=== PATIENT | female | born 1980 | race Caucasian/White ===

== ENCOUNTER 2018-07-09 09:05 | Emergency (ER) | payer OTHER ==
[2018-07-09 09:10] VITALS: TEMP 98.1
[2018-07-09] MEDS ORDERED: KETOROLAC 30 MG/ML 1 ML VIAL IVP STA (09:46)
--- NOTE | 2018-07-09 10:01 | XR ---
EXAMINATION TYPE: XR chest 2V DATE OF EXAM: 07/09/2018 COMPARISON: NONE HISTORY: Chest pain TECHNIQUE: Frontal and lateral views of the chest are obtained. FINDINGS: There is no focal air space opacity, pleural effusion, or pneumothorax seen. The cardiac silhouette size is within normal limits. The osseous structures are intact. There are cardiac leads present. IMPRESSION: No acute cardiopulmonary process.
[2018-07-09 10:22] LABS: Basophils # (A) 0.1 k/uL (0-0.2); Basophils % (A) 1 %; Eosinophils # (A) 1.5 k/uL (0-0.7); Eosinophils % (A) 26 %; HCT 40.5 % (34.0-46.0); HGB 13.7 gm/dL (11.4-16.0); Lymphocytes # (A) 1.5 k/uL (1.0-4.8); Lymphocytes % (A) 25 %; MCH 30.7 pg (25.0-35.0); MCHC 33.8 g/dL (31.0-37.0); MCV 90.9 fL (80.0-100.0); Mean Platelet Volume 6.4; Monocytes # (A) 0.3 k/uL (0-1.0); Monocytes % (A) 4 %; Neutrophils # (A) 2.5 k/uL (1.3-7.7); Neutrophils % (A) 43 %; Platelet Count 311 k/uL (150-450); RBC 4.46 m/uL (3.80-5.40); RDW 12.4 % (11.5-15.5); WBC 5.9 k/uL (3.8-10.6)
[2018-07-09 10:35] LABS: ALT 33 U/L (9-52); AST 21 U/L (14-36); Albumin 4.5 g/dL (3.5-5.0); Alkaline Phosphatase 37 U/L (38-126); Amylase 58 U/L (30-110); Anion Gap 9 mmol/L; Blood Urea Nitrogen 8 mg/dL (7-17); Calcium 9.6 mg/dL (8.4-10.2); Carbon Dioxide 29 mmol/L (22-30); Chloride 104 mmol/L (98-107); Glucose 105 mg/dL (74-99); Lipase 114 U/L (23-300); Magnesium 1.8 mg/dL (1.6-2.3); Potassium 3.5 mmol/L (3.5-5.1); Sodium 142 mmol/L (137-145); Total Bilirubin 0.5 mg/dL (0.2-1.3); Total Protein 7.5 g/dL (6.3-8.2)
--- NOTE | 2018-07-09 10:40 | ED ---
Chest Pain HPI - General Chief Complaint: Chest Pain Stated Complaint: chest & abdominal pain Time Seen by Provider: 07/09/18 09:14 Source: patient, RN notes reviewed Mode of arrival: ambulatory Limitations: no limitations - History of Present Illness Initial Comments: This is a 37-year-old female with a benign past medical history presents with complaints of sharp and burning left-sided chest pain is been intermittent since last night. She states for 2 and half weeks she's had midepigastric pain it was burning like a brick-like. It now radiates up the left upper chest.. She denies any fevers chills nausea vomiting sweats she states pain is 4/10 severity with does come on. It can last anywhere from 5 minutes to 60 minutes. She is not recall any heavy lifting she does have a history of left shoulder problems she relates the pain to that. Patient is a nonsmoker she has no prior history of heart or lung disease no family history of heart or lung disease at early age. Last missed her period was about a week ago she denies any risk of being MD Complaint: chest pain - Related Data Home Medications Medication Instructions Recorded Confirmed ALPRAZolam [Xanax] 0.25 mg PO HS 07/09/18 07/09/18 Multivitamins, Thera [Multivitamin 1 tab PO DAILY 07/09/18 07/09/18 (formulary)] Douglas-3 Fatty Acids/Fish Oil [Fish 1 cap PO DAILY 07/09/18 07/09/18 Oil 1,000 mg Softgel] traMADol HCL [Ultram] 25 mg PO DAILY 07/09/18 07/09/18 Previous Rx's Medication Instructions Recorded Ibuprofen 800 mg PO Q6HR PRN #20 tablet 07/09/18 Allergies Allergy/AdvReac Type Severity Reaction Status Date / Time Penicillins Allergy Unknown Verified 07/09/18 10:03 Review of Systems ROS Statement: Those systems with pertinent positive or pertinent negative responses have been documented in the HPI. ROS Other: All systems not noted in ROS Statement are negative. EKG Findings - EKG Results: EKG: interpreted by GENA, sinus rhythm (Normal sinus rhythm of 85. Interval 124 QRS duration 86 QT/QTC 382/[address]-T wave configuration.) Past Medical History Past Medical History: No Reported History History of Any Multi-Drug Resistant Organisms: None Reported Additional Past Surgical History / Comment(s): JAW SURGERY Past Psychological History: Anxiety Smoking Status: Never smoker Past Alcohol Use History: None Reported Past Drug Use History: None Reported General Exam - General Exam Comments Initial Comments: This a well-developed well-nourished awake alert oriented 3 female Limitations: no limitations General appearance: alert, in no apparent distress Head exam: Present: atraumatic, normocephalic, normal inspection Eye exam: Present: normal appearance, PERRL, EOMI. Absent: scleral icterus, conjunctival injection, periorbital swelling ENT exam: Present: normal exam, mucous membranes moist Neck exam: Present: normal inspection, full ROM, other (No stridor JVD or bruits). Absent: tenderness, meningismus, lymphadenopathy Respiratory exam: Present: normal lung sounds bilaterally, chest wall tenderness (Reproducible tenderness palpation over the left costal sternal costochondral margin no step-off or crepitation noted.). Absent: respiratory distress, wheezes, rales, rhonchi, stridor Cardiovascular Exam: Present: regular rate, normal rhythm, normal heart sounds. Absent: systolic murmur, diastolic murmur, rubs, gallop, clicks GI/Abdominal exam: Present: soft, normal bowel sounds. Absent: distended, tenderness, guarding, rebound, rigid Extremities exam: Present: normal inspection, full ROM, tenderness (Some tenderness palpation of left shoulder musculature. No step-off or crepitation), normal capillary refill. Absent: pedal edema, joint swelling, calf tenderness Back exam: Present: normal inspection Neurological exam: Present: alert, oriented X3, CN II-XII intact Psychiatric exam: Present: normal affect, normal mood Skin exam: Present: warm, dry, intact, normal color. Absent: rash Course Vital Signs 07/09/18 07/09/18 07/09/18 09:07 10:00 10:30 Temperature 98.1 F Pulse Rate 89 87 81 Respiratory 16 16 17 Rate Blood Pressure 133/79 126/82 115/73 O2 Sat by Pulse 100 98 98 Oximetry 07/09/18 11:00 Temperature Pulse Rate 79 Respiratory 11 L Rate Blood Pressure 104/70 O2 Sat by Pulse 99 Oximetry Chest Pain MDM - MDM Patient did require a CT chest due to the elevated d-dimer and CT report reveals no evidence of pulmonary embolism there is a small 3 mm nodule seen in the right middle lobe. Patient was informed of these findings. The current presentation is consistent with costochondritis/chest wall pain she does admit that she has been painting and staining also has a 100 pound dog that she does play with. She'll be discharged on anti-inflammatory she is a follow-up with her doctor return when necessary she does request pulmonary medicine referral nodule investigation. Disposition Clinical Impression: Costalchondritis, Chest wall syndrome, Pulmonary nodule, right Disposition: HOME SELF-CARE Condition: Good Instructions (If sedation given, give patient instructions): Costochondritis (ED), Pulmonary Nodules (ED) Prescriptions: Ibuprofen 800 mg PO Q6HR PRN #20 tablet PRN Reason: Pain Is patient prescribed a controlled substance at d/c from ED?: No Referrals: Aline Quinones DO [Primary Care Provider] - 1-2 days Gaston Davila MD [STAFF PHYSICIAN] - 1-2 days
[2018-07-09 10:46] LABS: Partial Thromboplastin Time 26.7 sec (22.0-30.0); Prothrombin Time 10.6 sec (9.0-12.0)
[2018-07-09 10:56] LABS: D-Dimer 0.65 mg/L FEU (<0.60)
--- NOTE | 2018-07-09 12:19 | CT ---
EXAMINATION TYPE: CT angio chest DATE OF EXAM: 07/09/2018 COMPARISON: NONE HISTORY: Chest pain CT DLP: 285.3 mGycm. Automated Exposure Control for Dose Reduction was Utilized. CONTRAST: CTA scan of the thorax is performed with IV Contrast, patient injected with 100 mL of Isovue 370, pul monary embolism protocol. MIP Images are created on CT scanner and reviewed. FINDINGS: LUNGS: There is a 3 mm right middle lobe pulmonary nodule that is solid in nature on series 406 image 71. Minimal bibasilar subsegmental atelectasis is also noted. There is no pleural effusion or pneumo thorax seen. The tracheobronchial tree is patent. MEDIASTINUM: There is nonsatisfactory enhancement of the pulmonary artery and its branches. In addit ion to patient motion partially obscuring the segmental and subsegmental pulmonary arteries there is a suboptimal bolus of contrast severely limiting the exam. No pulmonary embolus within the main, righ t main, or left main pulmonary arteries. There are no greater than 1 cm hilar or mediastinal lymph no adry. No cardiomegaly or pericardial effusion is seen. Probable residual thymus is seen within the s uperior anterior mediastinum. OTHER: Mild hepatic steatosis is noted in the upper abdomen. Minimal degenerative changes of the thor acic spine are present. IMPRESSION: 1. No evidence of pulmonary embolism within the right or left main pulmonary artery. Evaluation of th e segmental and subsegmental pulmonary arteries are nondiagnostic. Short-term follow-up repeat exam a fter hydration could be performed if there is further clinical concern. 2. 3 mm solid right middle lobe pulmonary nodule for which follow-up CT thorax is recommended in 12 m onths to establish stability.
[2018-07-09 12:51] VITALS: BP 130/73; PULSE 101; RESP 7
== END 2018-07-09 13:05 | disposition home or self-care (01) ==
LOC: EC 09:05
DX: M94.0 Chondrocostal junction syndrome [Tietze] (principal); R91.1 Solitary pulmonary nodule; F41.9 Anxiety disorder, unspecified; Z79.899 Other long term (current) drug therapy; Z79.891 Long term (current) use of opiate analgesic; Z88.0 Allergy status to penicillin
CPT/HCPCS: 36415; 71046; 71275; 80053; 82150; 83690; 83735; 84484; 85025; 85379; 85610; 85730; 93005; 96374; 99285

== ENCOUNTER → 2018-07-27 | Outpatient (CLI) | payer OTHER ==
--- NOTE | 2018-07-27 07:33 | US ---
EXAMINATION TYPE: US abdomen complete DATE OF EXAM: 07/27/2018 COMPARISON: NONE CLINICAL HISTORY: Abd Pain R10.9. EXAM MEASUREMENTS: Liver Length: 15.9 cm Gallbladder Wall: 0.2 cm CBD: 0.3 cm Spleen: 8.3 cm Right Kidney: 10.8 x 4.1 x 4.7 cm Left Kidney: 10.5 x 4.7 x 4.8 cm Pancreas: Tail obscured by overlying bowel gas, visualized portions wnl Liver: wnl Gallbladder: wnl Evidence for sonographic Noguera's sign: No CBD: wnl as visualized, distal portion obscured by bowel gas Spleen: wnl Right Kidney: No hydronephrosis or masses seen Left Kidney: No hydronephrosis. Small cyst visualized lower pole measuring 0.8 x 0.6 x 0.7 cm Upper IVC: wnl Abd Aorta: wnl The liver is homogenous. The intrahepatic portion of the IVC and proximal abdominal aorta are within normal limits. There is no evidence of cholelithiasis. Common bile duct is unremarkable. The visu alized portions of the pancreas are homogenous. The spleen is unremarkable. Kidneys are symmetric a nd free of hydronephrosis. IMPRESSION: 1. No sonographic evidence of acute cholecystitis nor cholelithiasis. 2. Simple appearing 8 mm left lower pole renal cyst.
== END | disposition home or self-care (01) ==
LOC: RADUSWWP 06:49
PROVIDERS: ATTEND Physician Assistant
DX: N28.1 Cyst of kidney, acquired (principal)
CPT/HCPCS: 76700